=== PATIENT | female | born 1990 | race Asian ===

== ENCOUNTER 2016-11-16 19:35 | Emergency (ER) | payer OTHER ==
[~2016-11-16] VITALS: Ht 167.6 cm; Wt 130.6 kg
[2016-11-16 20:30] VITALS: BP 130/85; TEMP 97.9
== END 2016-11-16 20:36 | disposition home or self-care (01) ==
LOC: ED 19:35
DX: R31.9 Hematuria, unspecified (principal); O26.891 Other specified pregnancy related conditions, first trimester; Z3A.08 8 weeks gestation of pregnancy
CPT/HCPCS: 81000; 99282

== ENCOUNTER 2017-06-08 17:16 | Emergency (ER) | payer OTHER ==
[~2017-06-08] VITALS: Ht 167.6 cm; Wt 108.0 kg
[2017-06-08 17:22] VITALS: TEMP 98.6
[2017-06-08 17:56] LABS: PLATELET COUNT 321 K/uL (152-353)
[2017-06-08 18:00] LABS: POTASSIUM 3.5 mmol/L (3.6-5.2); SODIUM 133 mmol/L (136-145)
[2017-06-08 18:49] VITALS: BP 136/74
== END 2017-06-08 18:49 | disposition short-term general hospital (02) ==
LOC: ED 17:16
PROVIDERS: Family Medicine
DX: O80 Encounter for full-term uncomplicated delivery (principal); Z3A.39 39 weeks gestation of pregnancy
CPT/HCPCS: 36415; 80053; 81000; 85027; 86850; 86900; 86901; 96360; 99285

== ENCOUNTER 2017-06-08 18:53 | Outpatient (CLI) | payer OTHER | END 2017-06-08 19:05 | disposition short-term general hospital (02) | LOC: AMB 18:53 | DX: O80 Encounter for full-term uncomplicated delivery (principal); Z3A.39 39 weeks gestation of pregnancy | CPT/HCPCS: A0425; A0429 ==

== ENCOUNTER 2017-06-11 14:47 | Outpatient (CLI) | payer OTHER | END 2017-06-11 15:09 | disposition short-term general hospital (02) | LOC: AMB 14:47 | DX: N89.8 Other specified noninflammatory disorders of vagina (principal); Z33.1 Pregnant state, incidental | CPT/HCPCS: A0425; A0429 ==

== ENCOUNTER 2018-04-28 13:45 | Emergency (ER) | payer OTHER ==
[~2018-04-28] VITALS: Ht 167.6 cm; Wt 125.2 kg
[2018-04-28 13:45] VITALS: TEMP 99.9
[2018-04-28 14:13] LABS: PLATELET COUNT 316 K/uL (152-353)
[2018-04-28 14:21] LABS: POTASSIUM 4.4 mmol/L (3.6-5.2)
[2018-04-28 16:18] VITALS: BP 125/80
== END 2018-04-28 16:18 | disposition home or self-care (01) ==
LOC: ED 13:56
DX: N30.81 Other cystitis with hematuria (principal)
CPT/HCPCS: 80053; 81000; 85027; 87081; 87880; 99283

== ENCOUNTER → 2018-04-28 | Outpatient (CLI) | payer OTHER | END | disposition short-term general hospital (02) | LOC: AMB 13:36 | DX: R60.0 Localized edema (principal); M79.1 Myalgia | CPT/HCPCS: A0425; A0429 ==

== ENCOUNTER 2018-06-13 13:50 | Outpatient (CLI) | payer OTHER | END 2018-06-13 20:57 | disposition home or self-care (01) | LOC: US 13:50 | DX: Z30.431 Encounter for routine checking of intrauterine contraceptive device (principal) ==

== ENCOUNTER 2020-05-27 11:00 | Outpatient (CLI) | payer OTHER | END 2020-05-27 23:08 | disposition home or self-care (01) | LOC: RAD 11:00 | DX: R05 Cough (principal) ==

== ENCOUNTER 2022-12-29 22:45 | Emergency (ER) | payer OTHER ==
[~2022-12-29] VITALS: Ht 167.6 cm; Wt 108.9 kg
[2022-12-29] MEDS ORDERED: FLOVENT DI100 MCG/BL (23:50)
[2022-12-29] MEDS ORDERED: LABETALOL HYDR300 MG PO (23:50)
[2022-12-29] MEDS ORDERED: ACTHAR (23:51)
[2022-12-29] MEDS ORDERED: LEVE500T5 PO (23:53)
[2022-12-29] MEDS ORDERED: SINGULAIR4 MG PO (23:53)
[2022-12-29 23:58] VITALS: TEMP 99.6
[2022-12-30 00:50] VITALS: BP 150/86
== END 2022-12-30 00:52 | disposition home or self-care (01) ==
LOC: ED 22:45
DX: R56.9 Unspecified convulsions (principal)
CPT/HCPCS: 80307; 80320; 81025; 96365; 99284; J1953

== ENCOUNTER 2023-06-07 09:11 | Outpatient (CLI) | payer OTHER ==
[~2023-06-07 09:11] MED LIST: ACTHAR; FLOVENT DI100 MCG/BL; LABETALOL HYDR300 MG PO; LEVE500T5 PO; SINGULAIR4 MG PO
[2023-06-07 09:41] LABS: PLATELET COUNT 299 K/uL (152-353)
== END 2023-06-07 19:11 | disposition home or self-care (01) ==
LOC: RAD 09:11
PROVIDERS: ATTEND Nurse Practitioner Family
DX: Z01.818 Encounter for other preprocedural examination (principal)
CPT/HCPCS: 36415; 80053; 85027; 93005